=== PATIENT | female | born 1940 | race Caucasian/White ===

== ENCOUNTER 2019-03-15 07:52 | Day surgery (SDC) | payer MEDICARE, OTHER ==
--- NOTE | 2019-03-15 07:03 | History and Physical - [place] ---
CHIEF COMPLAINT/HISTORY OF CHIEF COMPLAINT: This patient presents with a history of an intractable thoracic radiculopathy. Due to the failure of therapy , a spinal cord stimulatory trial was conducted on 09/13/18 with 75-85% pain control. Due to the failure of all therapies and the success for the trial, the patient presents today for implantation of a permanent system. PAST MEDICAL HISTORY: Hypertension. PAST SURGICAL HISTORY: List to be provided. MEDICATIONS ON ADMISSION: List to be provided. ALLERGIES: None. FAMILY/PSYCHOSOCIAL HISTORY: Social history - Social alcohol and caffeine. Family history - Coronary artery disease, hypertension and cancer. SYSTEMS REVIEW: The patient seems appropriate in no acute distress. The remainder of the systems review is positive for glasses, blood pressure, bladder dysfunction, and degenerative arthritis. PHYSICAL EXAMINATION: Height is 5'3", weight is 160. No vital signs. HEENT: Within normal limits. LUNGS: Clear. HEART: Rapid and regular. ABDOMEN: Nontender. MUSCULOSKELETAL: Examination of the musculoskeletal system shows diffuse tenderness throughout the mid to lower thoracic spine. There are radicular components along the intercostals extending towards the rib margins and the posterior axillary line. There currently are no upper or lower extremity involvements. NEUROLOGIC: Cranial nerves are intact. IMPRESSION: THORACIC RADICULOPATHY, ICD-10 CODE M54.14. PLAN: The patient is here for implantation of a permanent spinal cord stimulator after a successful trial and the failure of all other therapies. The procedure will be considered outpatient although an overnight stay will be evaluated. The potential risks, side effects, and complications have all been carefully reviewed, information from the co founder and ceo was provided, CD ROM outlined the potential risks, side effects and complications were reviewed. Interaction with a clinical specialist from [employer] was provided. JOB NUMBER: [id number] MTDD
[~2019-03-15 07:52] MED LIST: ACETAMINOPHEN 1,000 MG/100 ML BTL IV ONE; CEFAZOLIN 2 Gram 2 GM/50 ML BAG IVPB ONE; FAMOTIDINE 20MG TABLET PO ONE; MECLIZINE 25 MG TABLET PO ONE; METOCLOPRAMIDE 10 MG TABLET PO ONE
[2019-03-15] MEDS ORDERED: CEFAZOLIN 1G VIAL IM ONE (07:53)
[2019-03-15] MEDS ORDERED: PROPOFOL 10 MG/ML VIAL IV ONE (07:53)
[2019-03-15] MEDS ORDERED: 0.9 % SODIUM CHLORIDE 10 ML VIAL IVP ONE (07:53)
[2019-03-15] MEDS ORDERED: MIDAZOLAM HCL 2MG/2ML VIAL IV ONE (07:53)
[2019-03-15] MEDS ORDERED: FENTANYL PF 100MCG/2ML VIAL IV ONE (07:53)
[2019-03-15] MEDS ORDERED: HYDROCODONE/APAP 7.5/325MG TABLET PO ONE ×2 (07:53→11:42)
[2019-03-15] MEDS ORDERED: LIDOCAINE 2% MDV (20MG/ML) 20ML VIAL IV ONE (07:53)
[2019-03-15] MEDS ORDERED: RINGERS SOLUTION,LACTATED 1,000 ML IV ONE (08:15)
[2019-03-15] MEDS ORDERED: BUPIVACAINE 0.5% W/EPI MPF 30 ML VIAL SQ ONE ×2 (10:12)
[2019-03-15] MEDS ORDERED: LIDOCAINE 1% W/EPI 1:100,000 MDV 20 ML VIAL SQ ONE ×2 (10:12)
[2019-03-15] MEDS ORDERED: RINGERS SOLUTION,LACTATED 150 ML IV ONE (11:13)
--- NOTE | 2019-03-17 08:31 | Operative Note ---
DATE OF SURGERY: 03/15/2019 PREOPERATIVE DIAGNOSIS: Thoracic radiculopathy, ICD10 code M54.14 with thoracolumbar rotoscoliosis, ICD10 code M41.25. OPERATION: 1. Fluoroscopic-guided epidural access left T12-L1, placement of spinal cord stimulator lead 1 [employer] Infinion 16, 6 electrodes positioned left T4. 2. Fluoroscopic-guided epidural access left T11-12, placement of spinal cord stimulator lead 2 [employer] Infinion 16, 6 electrodes positioned right T4. 3. Complex programming of lead 1 over 20 minutes followed by complex programming of lead 2 over 20 minutes. 4. Incision and subcutaneous dissection and anchoring of lead 1 and lead 2 to supraspinous fascia with a [employer] locking anchor. 5. Incision and subcutaneous dissection and creation of subcutaneous pouch at right posterior gluteal margin for placement of generator identified as [employer] programmable rechargeable WaveWriter. 6. Tunneling between lead pouch and a generator pouch, placement of each lead into generator pouch, each lead interfaced with generator. 7. Placement of generator pouch, placement of leads into their pouch, closure of both incisions using Stratafix suture 2-0 fascia, 3-0 skin, and Dermabond closure. A complex recovery room programming internal generator home use two stimulators in recovery room for 20 minutes. SURGEON: Keo Jackson DO ANESTHESIA: Local sedation. ANESTHESIA PROVIDER: Armando Mckinney INDICATION: This patient presents with a history of intractable thoracic radiculopathy with a moderately severe rotoscoliosis. Due to the failure of therapies and the success of a spinal cord stimulator trial, the patient presents today for implantation of permanent system. PROCEDURE: Intravenous line, vital sign monitoring, IV sedation. Prepped and draped with sterile technique. Under imaging, the epidural interspace at T11-12 and 12-1 were both marked on the left, skin infiltrated using 2 separate curved access Epimed needles, loss of resistance, the space was accessed. Atraumatic. No blood, no CSF. Spinal cord stimulator lead 1, a [employer] Infinion 16, 6 electrodes inserted at 12-1 directly left of the midline T4. With the access at 11-12, spinal cord stimulator lead 2, [employer] Infinion 16, 6 electrodes positioned right of the midline at T4. Complex programming of lead 1 over 20 minutes followed by complex programming of lead 2 over 20 minutes resulting in complete pattern stimulation across the back and into the primary region of her pain extending towards the rib margins. Patient indicating we had all the areas of the pain. She was given the option to implant and continue to program or remove. She opted to implant. The question was repeated with the same response. The skin above and below both needles was infiltrated. Incision was made and subcutaneous dissection was conducted to supraspinous fascia. Each of the leads was then anchored to the supraspinous fascia with a [employer] locking anchor. At the right posterior gluteal margin, a site picked by the patient for the generator, skin infiltrated, incision made, and subcutaneous dissection was conducted to form a pouch suitable for the size and depth of the generator, a [employer] programmable rechargeable WaveWriter. A tunneling tool was used to secure the leads in the generator pouch, and then each lead was interfaced to the generator. Antibiotic irrigation and Bovie for hemostasis. With the leads interfaced with the generator, the generator was placed into the pouch. The leads were then placed into their own pouch, and both incisions were closed using Stratafix suture, 2-0 fascia, and 3-0 skin. Dermabond closure was used to approximate the edges of both wounds. She was transferred to recovery room stable. No side effects from the procedure or sedation. Fully awake and alert in the recovery room. Complex programming of the generator was then performed over 20 minutes reestablishing stimulation and pain control to the appropriate areas. She was instructed on use of the system, provided information, error messaging and then prepared for discharge. DISCHARGE INSTRUCTIONS: 1. The sites will remain clean and dry although the Dermabond will allow showering. She should not sit in water. 2. Standard medications resumed including an antibiotic which she will take for the next 14 days. This antibiotic will be selected from her list of tolerated antibiotics. 3. The office will contact the patient in 12-24 hours to set up a time in the next 7-10 days to evaluate the sites. Until then, she should keep her activities low. The Dermabond dressing will allow showering but should not sit in water. If it curls, she can trim the edges but should not remove the dressing. If the dressing comes off, she should contact the clinic. All other instructions were provided with numbers to contact if problems given. She was then discharged. CC: Dr. Keshia HERNANDEZ
--- NOTE | 2019-03-17 15:13 | RADIOLOGY REPORT ---
EXAM: THORACOLUMBAR SPINE, ONE VIEW HISTORY: SPINAL CANAL STIMULATOR IMPLANT. TECHNIQUE: A single AP portable supine view of the thoracic and upper lumbar portions of the spine were obtained. FINDINGS: There is normal bone mineralization. No lytic or blastic bone lesion. Mild degenerative end plate changes are scattered throughout the visualized spine. A dual lead transvenous cardiac stimulator is in place with leads entering the spinal canal at either the upper lumbar or lower thoracic levels. Lead tips project at the T3-T4 level. The leads are connected to a stimulator generator which projects at the right flank level. IMPRESSION: DUAL LEAD INTRASPINAL STIMULATOR IN PLACE. JOB NUMBER: [id number] MTDD
== END 2019-03-15 12:12 | disposition home or self-care (01) ==
LOC: SUR 07:52
PROVIDERS: ATTEND Pain Medicine Interventional Pain Medicine
DX: M54.14 Radiculopathy, thoracic region (principal); M41.25 Other idiopathic scoliosis, thoracolumbar region; I10 Essential (primary) hypertension; R01.1 Cardiac murmur, unspecified; E03.9 Hypothyroidism, unspecified
CPT/HCPCS: 63650; 63685; 01936; 95972; 72020; J3010; J0690; C1820; C1883; J7120